=== PATIENT | female | born 1955 | race Caucasian/White ===

== ENCOUNTER → 2017-01-20 | Outpatient (CLI) | payer OTHER ==
--- NOTE | 2017-01-20 19:37 | Diagnostic Imaging Report ---
INDICATION: This patient has epigastric pain, suspicion for hiatal hernia. TECHNIQUE: The patient ingested effervescent crystals followed by thick and thin barium with fluoroscopic interrogation as well as overhead radiographs performed. FINDINGS: Swallowing was normal. Esophageal distensibility and motility was normal. There was no aspiration or airway penetration. The EG junction appeared normal and no hernia or reflux was elicited despite evocative maneuvers. No esophageal stricture, mucosal irregularity, or filling defect. Gastric filling, distensibility, and emptying was normal. The gastric mucosal fold pattern was normal. Gastric outlet was widely patent. The duodenal sweep was normal. The pyloric channel was normal. No ulcer, stricture, or mass. The opacified proximal small bowel loops revealed a normal mucosal fold pattern without findings suggestive of their obstruction. IMPRESSION: This is a normal double-contrast upper GI exam. In particular, no hernia, reflux, stricture, ulcer, or mass was identified. Dictated by: Dictated on workstation # [id number]
== END ==
LOC: RAD 10:11
PROVIDERS: ATTEND Physician Assistant Medical
DX: R10.13 Epigastric pain (principal)
CPT/HCPCS: 74241